=== PATIENT | female | born 1965 | race Caucasian/White ===

== ENCOUNTER 2017-03-19 16:19 | Inpatient (IN) | payer OTHER ==
[~2017-03-19] VITALS: Ht 157.5 cm; Wt 60.8 kg
[2017-03-19 17:09] VITALS: BP 165/87; PULSE 80; RESP 25; O2SAT 98
[2017-03-19] MEDS ORDERED: MORPHINE SULFATE 4 MG/ML INJ IV PUSH ONE (17:30)
[2017-03-19] MEDS ORDERED: ONDANSETRON HCL 4 MG/2 ML VIAL IV PUSH ONE (17:30)
[2017-03-19] MEDS ORDERED: TETANUS/DIPHTHERIA TOXOID ADULT 0.5 ML VIAL IM ONE (17:30)
[2017-03-19 17:46] LABS: AUTOMATED NEUTROPHIL # 15.2 TH/MM3 (1.8-7.7); BASOPHIL # 0.1 TH/MM3 (0-0.2); BASOPHIL % 0.4 % (0.0-2.0); EOSINOPHIL # 0.1 TH/MM3 (0-0.4); EOSINOPHIL % 0.4 % (0.0-4.0); HEMO FLAGS DIFF FINAL; LYMPH % 8.3 % (9.0-44.0); LYMPHOCYTE # 1.4 TH/MM3 (1.0-4.8); MEAN CELL VOLUME 95.8 FL (80.0-100.0); MEAN CORPUSCULAR HEMOGLOBIN 31.7 PG (27.0-34.0); MEAN CORPUSCULAR HGB CONC 33.1 % (32.0-36.0); MONO % 3.1 % (0.0-8.0); NEUT % 87.8 % (16.0-70.0); PLATELET COUNT 249 TH/MM3 (150-450); RED CELL DISTRIBUTION WIDTH 12.8 % (11.6-17.2); WHITE BLOOD COUNT 17.3 TH/MM3 (4.0-11.0)
[2017-03-19 18:02] LABS: ANION GAP 7 MEQ/L (5-15); BICARBONATE 20.3 MEQ/L (21.0-32.0); BLOOD UREA NITROGEN 13 MG/DL (7-18); CHLORIDE 109 MEQ/L (98-107); GLOMERULAR FILTRATION RATE 82 ML/MIN (>89); MAGNESIUM 2.3 MG/DL (1.5-2.5); POTASSIUM 4.2 MEQ/L (3.5-5.1); SODIUM (NA) 136 MEQ/L (136-145)
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
[2017-03-19] MEDS ORDERED: SODIUM CHLOR 0.9% 1000 ML INJ 1,000 ML IV SCH (18:58)
[2017-03-19] MEDS ORDERED: HYDROmorphone HCL PF 1 MG/ML VIAL IV PUSH ONE (19:00)
[2017-03-19] MEDS ORDERED: HYDROmorphone HCL PF 1 MG/ML VIAL SQ ONE (19:15)
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
[2017-03-19 19:30] VITALS: BP 135/89; PULSE 80; RESP 24; O2SAT 96
[2017-03-19] MEDS ORDERED: GABA300C5 PO (19:33)
[2017-03-19] MEDS ORDERED: ROXI30TA14 PO (19:33)
[2017-03-19] MEDS ORDERED: AMBI10TA PO (19:33)
[2017-03-19] MEDS ORDERED: MOBI15TA PO (19:33)
[2017-03-19] MEDS ORDERED: IOHEXOL 350 MG/ML 10 ML VIAL (for RAD DIAG) IVCONTRAST ONE (19:57)
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
[2017-03-19] MEDS ORDERED: HYDROmorphone HCL PF 1 MG/ML VIAL IVP PRN (20:30)
[2017-03-19] MEDS ORDERED: MISCELLANEOUS NURSING INFORMATION XX SCH (20:30)
[2017-03-19] MEDS ORDERED: CHLORHEXIDINE GLUCONATE 2 % 1 PACK (2 CLOTHS) TOP PRN (20:30)
[2017-03-19] MEDS ORDERED: ONDANSETRON HCL 4 MG/2 ML VIAL IV PUSH PRN (20:30)
[2017-03-19 20:59] VITALS: BP 159/87; PULSE 83; RESP 24; O2SAT 97
[2017-03-19] MEDS: LACTATED RINGER'S 1000 ML INJ 1,000 ML IV SCH (21:00)
[2017-03-19] MEDS: DOCUSATE SODIUM 100 MG CAP PO SCH (21:00)
[2017-03-19] MEDS: HYDROmorphone HCL PF 2 MG/ML VIAL IV PRN ×2 (21:01→23:36)
[2017-03-19 21:50] VITALS: BP 183/106; PULSE 79; RESP 18; TEMP 97.5; O2SAT 98
[2017-03-20] VITALS (9 sets, daily range): BP systolic 143–198; BP diastolic 86–98; PULSE 62–87; RESP 18; TEMP 96.9–98.7; O2SAT 94–99
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
[2017-03-20] MEDS: CYCLOBENZAPRINE HCL 10 MG TAB PO SCH ×4 (00:25→21:51)
[2017-03-20] MEDS ORDERED: PILL SPLITTER OTHER PRN (00:30)
[2017-03-20] MEDS: HYDROmorphone HCL PF 2 MG/ML VIAL IV PRN ×4 (02:19→12:00)
[2017-03-20] MEDS ORDERED: CHLORHEXIDINE GLUCONATE 2 % 1 PACK (2 CLOTHS) TOP SCH (04:00)
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
[2017-03-20] MEDS: LACTATED RINGER'S 1000 ML INJ 1,000 ML IV SCH (06:28)
[2017-03-20] MEDS ORDERED: ENALAPRILAT 1.25 MG/ML VIAL IV PUSH PRN (08:45)
[2017-03-20] MEDS: DOCUSATE SODIUM 100 MG CAP PO SCH ×2 (08:55→19:50)
[2017-03-20] MEDS: LIDOCAINE HCL 5% PATCH T-DERMAL SCH (08:55)
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
[2017-03-20] MEDS: KETOROLAC TROMETHAMINE 30 MG/ML (IVP) VIAL IV PUSH SCH (18:00)
[2017-03-20] MEDS: HYDROmorphone HCL PF 1 MG/ML VIAL IV PRN ×2 (19:46→22:58)
[2017-03-20] MEDS ORDERED: GABAPENTIN 300 MG CAP PO SCH (21:00)
[2017-03-20] MEDS ORDERED: REMOVE OLD PATCH T-DERMAL SCH (21:00)
[2017-03-21] MEDS: KETOROLAC TROMETHAMINE 30 MG/ML (IVP) VIAL IV PUSH SCH ×3 (00:20→10:56)
[2017-03-21 00:25] VITALS: BP 166/97; PULSE 76; RESP 18; TEMP 97.5; O2SAT 100
[2017-03-21] MEDS: HYDROmorphone HCL PF 1 MG/ML VIAL IV PRN ×4 (04:44→13:53)
[2017-03-21] MEDS: CYCLOBENZAPRINE HCL 10 MG TAB PO SCH ×2 (06:04→13:53)
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
[2017-03-21 07:03] LABS: AUTOMATED NEUTROPHIL # 4.6 TH/MM3 (1.8-7.7); BASOPHIL # 0.1 TH/MM3 (0-0.2); BASOPHIL % 0.7 % (0.0-2.0); EOSINOPHIL # 0.2 TH/MM3 (0-0.4); EOSINOPHIL % 2.6 % (0.0-4.0); HEMATOCRIT 39.6 % (35.0-46.0); HEMO FLAGS DIFF FINAL; LYMPH % 33.1 % (9.0-44.0); LYMPHOCYTE # 2.6 TH/MM3 (1.0-4.8); MEAN CELL VOLUME 95.5 FL (80.0-100.0); MEAN CORPUSCULAR HEMOGLOBIN 31.3 PG (27.0-34.0); MEAN CORPUSCULAR HGB CONC 32.8 % (32.0-36.0); MONO % 5.9 % (0.0-8.0); NEUT % 57.7 % (16.0-70.0); PLATELET COUNT 185 TH/MM3 (150-450); RED BLOOD COUNT 4.15 MIL/MM3 (4.00-5.30); RED CELL DISTRIBUTION WIDTH 12.6 % (11.6-17.2)
[2017-03-21 07:19] LABS: BICARBONATE 27.8 MEQ/L (21.0-32.0); POTASSIUM 3.3 MEQ/L (3.5-5.1)
[2017-03-21] MEDS: LIDOCAINE HCL 5% PATCH T-DERMAL SCH (07:54)
[2017-03-21 08:00] VITALS: BP 176/95; PULSE 68; RESP 18; TEMP 96.2; O2SAT 98
[2017-03-21] MEDS ORDERED: LACTULOSE SYRUP 20 GM/30 ML CUP PO SCH (09:00)
[2017-03-21] MEDS ORDERED: MAGNESIUM HYDROXIDE SUSP 30 ML CUP PO SCH (09:00)
[2017-03-21] MEDS: DOCUSATE SODIUM 100 MG CAP PO SCH (09:00)
[2017-03-21 10:50] VITALS: PULSE 70
[2017-03-21 11:35] VITALS: BP 147/89; PULSE 80; RESP 17; TEMP 96.5; O2SAT 98
[2017-03-21] MEDS ORDERED: MAGN400S PO (12:29)
[2017-03-21] MEDS ORDERED: DOCU1CAP39 PO (12:29)
[2017-03-21] MEDS ORDERED: POTASSIUM CHLORIDE 20 MEQ CONTROLLED RELEASE TAB PO ONE (12:30)
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
== END 2017-03-21 17:02 | disposition home or self-care (01) | DRG 185 ==
LOC: NEPE 16:19 → NEDA 20:21 → N06B 21:15
PROVIDERS: ADMIT Surgery Trauma Surgery; ATTEND Surgery Trauma Surgery
DX: S22.22XA Fracture of body of sternum, initial encounter for closed fracture (principal); F17.210 Nicotine dependence, cigarettes, uncomplicated; S50.12XA Contusion of left forearm, initial encounter; N63.10 Unspecified lump in the right breast, unspecified quadrant; M54.9 Dorsalgia, unspecified; G89.29 Other chronic pain; S20.219A Contusion of unspecified front wall of thorax, initial encounter; V43.52XA Car driver injured in collision with other type car in traffic accident, initial encounter; Y92.410 Unspecified street and highway as the place of occurrence of the external cause; Z85.43 Personal history of malignant neoplasm of ovary
CPT/HCPCS: 70450; 71010; 71250; 71260; 72125; 73090; 73140; 74177; 80048; 83735; 84484; 84703; 85025; 86850; 86900; 86901; 94150; 96361; 96374; 96375; J1170; J1885; J2270; J2405; J7030; J7120; Q9967